=== PATIENT | male | born 1980 | race Caucasian/White ===

== ENCOUNTER 2019-01-14 21:03 | Emergency (ER) | payer OTHER ==
[2019-01-14 21:32] VITALS: BP 179/123; PULSE 97; TEMP 97.9; BMI 30.8
[2019-01-14] MEDS ORDERED: DIPHTH,PERTUSS(ACELL),TET 0.5 ML DISP.SYRIN IM ONE ×2 (22:31→22:35)
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
[2019-01-14 23:02] LABS: BASO % 0.5 % (0-2.0); EOS % 3.8 % (0-4.5); HEMOGLOBIN 14.9 GM/dL (11.7-16.9); LYMPH % 25.6 % (8-40); MCHC 35.4 g/dl (32.0-35.9); MEAN CELL VOLUME 87.5 fl (80-96); MEAN PLT VOLUME 8.3 fl (7.5-11.1); NEUT % 64.1 % (42.8-82.8); PLATELET COUNT 268 K/MM3 (134-434); RDW 13.3 % (11.9-15.9)
[2019-01-14] MEDS ORDERED: HIV POST EXPOSURE PROPHYLAXIS KIT NR ONE (23:07)
[2019-01-14] MEDS ORDERED: HIV POST EXPOSURE PROPHYLAXIS KIT PO ONE (23:15)
[2019-01-14 23:25] LABS: ALBUMIN 4.3 g/dl (3.4-5.0); ALK PHOS 74 U/L (45-117); ANION GAP 7 MMOL/L (8-16); BILIRUBIN,TOTAL 0.6 mg/dL (0.2-1); BLOOD UREA NITROGEN 18 mg/dL (7-18); CALCIUM 9.8 mg/dL (8.5-10.1); CHLORIDE 103 mmol/L (98-107); CO2 28 mmol/L (21-32); GLUCOSE,RANDOM 125 mg/dL (74-106); POTASSIUM 3.3 mmol/L (3.5-5.1); SGOT/AST 16 U/L (15-37); SGPT/ALT 23 U/L (13-61); SODIUM 139 mmol/L (136-145); TOT PROT 7.8 g/dl (6.4-8.2)
[2019-01-16 03:11] LABS: HBsAG SCREEN Negative (Negative)
== END 2019-01-15 00:51 | disposition home or self-care (01) ==
LOC: JER 21:03
PROC: 3E0234Z Introduction of Serum, Toxoid and Vaccine into Muscle, Percutaneous Approach (ICD-10-PCS; principal; 2019-01-14)
DX: Z77.21 Contact with and (suspected) exposure to potentially hazardous body fluids (principal); S50.811A Abrasion of right forearm, initial encounter; Y04.2XXA Assault by strike against or bumped into by another person, initial encounter; Y93.89 Activity, other specified; Y92.230 Patient room in hospital as the place of occurrence of the external cause; Y99.0 Civilian activity done for income or pay
CPT/HCPCS: 36415; 80053; 85025; 86317; 86706; 86803; 87340; 87389; 90715; 99281-25

== ENCOUNTER 2020-09-28 20:25 | Emergency (ER) | payer OTHER ==
[2020-09-28 20:37] VITALS: BP 128/75; PULSE 85; TEMP 98.1; BMI 32.1
[2020-09-28] MEDS ORDERED: BACITRACIN 0.9 GM PACKET TP ONE (20:46)
[2020-09-28] MEDS ORDERED: BACITRACIN 15 GM TUBE TOPICAL OINTMENT ONE ×2 (21:20→21:24)
== END 2020-09-28 21:28 | disposition home or self-care (01) ==
LOC: JERFT 20:25 → JER 20:25 → JERFT 21:28
DX: S60.812A Abrasion of left wrist, initial encounter (principal)
CPT/HCPCS: 73110-TC-LT-FY; 73130-TC-LT-FY; 99283-25

== ENCOUNTER 2023-07-26 20:08 | Emergency (ER) | payer OTHER, BC ==
[2023-07-26 20:14] VITALS: BP 145/96; PULSE 91; RESP 18; TEMP 98; BMI 31.4
[2023-07-26] MEDS ORDERED: ACETAMINOPHEN 500 MG TABLET (FP) PO ONE (20:32)
[2023-07-26] MEDS ORDERED: ACETAMINOPHEN 500 MG TABLET (FP) ONE (20:38)
== END 2023-07-26 21:09 | disposition home or self-care (01) ==
LOC: JERFT 20:08
DX: R07.89 Other chest pain (principal); M25.531 Pain in right wrist; S60.811A Abrasion of right wrist, initial encounter; Y04.8XXA Assault by other bodily force, initial encounter; Y99.0 Civilian activity done for income or pay
CPT/HCPCS: 71046-TC-FY; 73110-TC-RT-FY; 99284-25